=== PATIENT | female | born 1940 | race Two or more races ===

== ENCOUNTER 2023-01-26 13:41 | Emergency (ER) | payer OTHER ==
[~2023-01-26] VITALS: Ht 160 cm; Wt 73.5 kg
[~2023-01-26 13:41] MED LIST: COZAAR100 MG
== END 2023-01-26 19:46 | disposition home or self-care (01) ==
LOC: ER
DX: S70.11XA Contusion of right thigh, initial encounter (principal); W18.39XA Other fall on same level, initial encounter; Y93.89 Activity, other specified; Y92.480 Sidewalk as the place of occurrence of the external cause
CPT/HCPCS: 96372; 99284; J1885